=== PATIENT | male | born 1950 | race Asian ===

== ENCOUNTER → 2019-01-13 | Outpatient (CLI) | payer OTHER ==
--- NOTE | 2019-01-13 16:40 | KCIC ---
Chest, PA and Lateral: Technique: PA and lateral views of the chest were obtained. History: Positive skin test. Comparison: None. Findings: The cardiomediastinal silhouette grossly appears unremarkable. Mild prominent bilateral interstitial lung markings likely chronic interstitial changes. Mild degenerative changes thoracic spine. IMPRESSION: 1. Mild prominent bilateral interstitial lung markings likely chronic interstitial disease. Electronically signed by: Selwyn Gamez MD (01/13/2019 4:37 PM) [id number] [id number]
== END | disposition home or self-care (01) ==
LOC: KCIC 10:54
PROVIDERS: ATTEND Internal Medicine
DX: R76.11 Nonspecific reaction to tuberculin skin test without active tuberculosis (principal); M47.814 Spondylosis without myelopathy or radiculopathy, thoracic region
CPT/HCPCS: 71046